=== PATIENT | male | born 2000 | race Two or more races ===

== ENCOUNTER 2018-08-23 01:02 | Emergency (ER) | payer MEDICAID, OTHER ==
[~2018-08-23] VITALS: Ht 175.3 cm; Wt 81.6 kg
[2018-08-23] MEDS ORDERED: ACETAMINOPHEN 325 MG TAB PO ONE ×2 (01:24→01:30)
[2018-08-23 02:46] LABS: Basophils # (auto) 0 uL; Basophils % (auto) 0.2 % (0.0-2.0); Eosinophils # (auto) 0 uL; Hematocrit 45.5 % (41.0-53.0); Hemoglobin 15.5 g/dL (13.5-17.5); Lymphocytes # (auto) 0.7 uL; Lymphocytes % (auto) 5.4 % (10.0-50.0); Mean Corpuscular Volume 85.5 fL (80.0-100.0); Monocytes # (auto) 0.7 uL; Monocytes % (auto) 5.6 % (0.0-12.0); Neutrophils # (auto) 11.9 uL; Neutrophils % (auto) 88.8 % (37.0-80.0); Platelet Count (auto) 254 10^3/uL (140-450); Red Blood Cells 5.32 10^6/uL (4.5-5.90); White Blood Cell 13.4 10^3/uL (4.4-10.8)
[2018-08-23 03:03] LABS: Albumin 4.1 g/dL (3.4-5.0); BUN/Creatinine Ratio 16.5; Calcium 8.4 mg/dL (8.5-10.1); Potassium 3.3 mmol/L (3.5-5.1)
[2018-08-23 03:05] LABS: Bilirubin, Total 0.7 mg/dL (0.2-1.0); Total Protein 8.5 g/dL (6.4-8.2)
[2018-08-23] MEDS ORDERED: cefTRIAXone SOD 1,000 MG VL IM ONE (08:15)
[2018-08-23] MEDS ORDERED: POTASSIUM EFFERVESENT TAB 25 MEQ PO ONE (08:15)
[2018-08-23 09:14] VITALS: BP 130/83
[2018-08-23] MEDS ORDERED: ONDANSETRON ODT 4 MG TAB PO ONE (09:30)
== END 2018-08-23 09:50 | disposition home or self-care (01) ==
LOC: ER 01:02
DX: J40 Bronchitis, not specified as acute or chronic (principal); E87.6 Hypokalemia; R51 Headache; R42 Dizziness and giddiness
CPT/HCPCS: 36415; 71046; 80053; 85025; 96372; 99284; J0696; Q0162